=== PATIENT | male | born 1950 | race Two or more races ===

== ENCOUNTER 2018-11-02 11:05 | Emergency (ER) | payer OTHER ==
[~2018-11-02] VITALS: Ht 177.8 cm; Wt 83.9 kg
[~2018-11-02 11:05] MED LIST: INTESTINEX1 CAP PO; ZANTAC150 MG PO
[2018-11-02] MEDS ORDERED: MATULANE50 MG (11:37)
[2018-11-02] MEDS ORDERED: AVALIDE 300-121 EACH (11:37)
[2018-11-02] MEDS ORDERED: CRESTOR10 MG (11:38)
[2018-11-02] MEDS ORDERED: ZETIA10 MG (11:38)
[2018-11-02] MEDS ORDERED: ASPIR 8181 MG (11:38)
== END 2018-11-02 14:31 | disposition home or self-care (01) ==
LOC: ER 11:05
DX: L03.115 Cellulitis of right lower limb (principal); S90.31XS Contusion of right foot, sequela; W22.8XXS Striking against or struck by other objects, sequela

== ENCOUNTER 2019-02-26 16:16 | Outpatient (CLI) | payer OTHER ==
[~2019-02-26 16:16] MED LIST changes: +ASPIR 8181 MG; +AVALIDE 300-121 EACH; +CRESTOR10 MG; +MATULANE50 MG; +ZETIA10 MG
== END 2019-02-27 12:39 | disposition home or self-care (01) ==
LOC: RAD 16:16
DX: J18.8 Other pneumonia, unspecified organism (principal)

== ENCOUNTER 2019-04-14 10:15 | Outpatient (CLI) | payer OTHER | END 2019-04-14 11:00 | disposition home or self-care (01) | LOC: RAD 10:15 | DX: R05 Cough (principal) ==

== ENCOUNTER 2019-04-16 14:41 | Emergency (ER) | payer OTHER ==
[~2019-04-16] VITALS: Ht 177.8 cm; Wt 83.9 kg
== END 2019-04-16 20:51 | disposition home or self-care (01) ==
LOC: ER 14:41
DX: J06.9 Acute upper respiratory infection, unspecified (principal)

== ENCOUNTER 2020-11-18 08:00 | Outpatient (CLI) | payer OTHER | END 2020-11-18 08:15 | disposition home or self-care (01) | LOC: PPH VACUNA 08:00 | PROVIDERS: ATTEND Emergency Medicine Pediatric Emergency Medicine | DX: Z23 Encounter for immunization (principal) ==

== ENCOUNTER → 2020-11-18 | Outpatient (CLI) | payer OTHER | END | disposition home or self-care (01) | LOC: RAD 16:07 | PROVIDERS: ATTEND Internal Medicine Cardiovascular Disease | DX: I11.9 Hypertensive heart disease without heart failure (principal); R07.89 Other chest pain ==

== ENCOUNTER 2021-01-24 15:39 | Outpatient (CLI) | payer OTHER | END 2021-01-24 15:50 | disposition home or self-care (01) | LOC: RAD 15:39 | PROVIDERS: ATTEND Internal Medicine Cardiovascular Disease | DX: M79.641 Pain in right hand (principal); M79.642 Pain in left hand ==

== ENCOUNTER 2021-05-30 15:15 | Outpatient (CLI) | payer OTHER | END 2021-05-30 15:30 | disposition home or self-care (01) | LOC: PPH VACUNA 15:15 | PROVIDERS: ATTEND Emergency Medicine Pediatric Emergency Medicine | DX: Z23 Encounter for immunization (principal) ==

== ENCOUNTER 2021-06-15 11:02 | Outpatient (CLI) | payer OTHER | END 2021-06-15 12:02 | disposition home or self-care (01) | LOC: RAD 11:02 | DX: M16.12 Unilateral primary osteoarthritis, left hip (principal) ==

== ENCOUNTER 2021-10-02 14:55 | Outpatient (CLI) | payer OTHER | END 2021-10-02 15:50 | disposition home or self-care (01) | LOC: PPH VACUNA 14:55 → ASH CLINIC 14:55 → PPH VACUNA 15:50 | PROVIDERS: ATTEND General Practice | DX: U07.1 COVID-19 (principal) ==

== ENCOUNTER 2022-08-02 06:36 | Outpatient (CLI) | payer OTHER | END 2022-08-02 07:10 | disposition home or self-care (01) | LOC: SONOGRAMA 06:36 | PROVIDERS: ATTEND Urology | DX: R31.0 Gross hematuria (principal); N40.0 Benign prostatic hyperplasia without lower urinary tract symptoms ==

== ENCOUNTER 2022-11-08 06:24 | Outpatient (CLI) | payer OTHER | END 2022-11-08 10:39 | disposition home or self-care (01) | LOC: TOM 06:24 | PROVIDERS: ATTEND Internal Medicine Gastroenterology | DX: R10.11 Right upper quadrant pain (principal); R10.12 Left upper quadrant pain; R10.13 Epigastric pain | CPT/HCPCS: 74178; Q9965 ==

== ENCOUNTER 2023-05-07 08:25 | Outpatient (CLI) | payer OTHER | END 2023-05-07 08:40 | disposition home or self-care (01) | LOC: RAD 08:25 | PROVIDERS: ATTEND Specialist | DX: I10 Essential (primary) hypertension (principal); Z95.0 Presence of cardiac pacemaker ==

== ENCOUNTER 2023-09-19 09:39 | Outpatient (CLI) | payer OTHER | END 2023-09-19 14:35 | disposition home or self-care (01) | LOC: RAD 09:39 | PROVIDERS: ATTEND Physical Medicine & Rehabilitation | DX: M54.51 Vertebrogenic low back pain (principal); M51.36 Other intervertebral disc degeneration, lumbar region ==

== ENCOUNTER 2023-09-28 08:10 | Emergency (ER) | payer OTHER ==
[~2023-09-28] VITALS: Ht 177.8 cm; Wt 80.3 kg
[2023-09-28] MEDS ORDERED: LEXAPRO5 MG (08:15)
[2023-09-28 09:43] LABS: HEMATOCRIT 39.2 % (39.0-48.0); HEMOGLOBIN 13.6 g/dL (13-16.00); MEAN CELL VOLUME 89.8 fL (80.0-100.00); MEAN CORPUSCULAR HGB CONC 34.6 g/dl (32.0-36.0); PLATELET COUNT 224 K/uL (150-450); RED BLOOD COUNT 4.37 M/uL (4.00-6.00); RED CELL DISTRIBUTION WIDTH 13.8 % (11.5-14.5)
[2023-09-28] MEDS ORDERED: MAPAP500 MG PO (11:29)
[2023-09-28] MEDS ORDERED: VITAMIN C500 MG PO (11:29)
== END 2023-09-28 11:44 | disposition home or self-care (01) ==
LOC: ER 08:12
DX: B34.9 Viral infection, unspecified (principal); Z20.822 Contact with and (suspected) exposure to COVID-19

== ENCOUNTER 2023-11-14 06:45 | Outpatient (CLI) | payer OTHER ==
[~2023-11-14 06:45] MED LIST changes: +LEXAPRO5 MG; +MAPAP500 MG PO; +VITAMIN C500 MG PO
== END 2023-11-14 10:02 | disposition home or self-care (01) ==
LOC: RAD 06:45
PROVIDERS: ATTEND Pulmonary Function Technologist
DX: J45.901 Unspecified asthma with (acute) exacerbation (principal); J45.909 Unspecified asthma, uncomplicated; M19.90 Unspecified osteoarthritis, unspecified site; I10 Essential (primary) hypertension; Z95.0 Presence of cardiac pacemaker; G43.909 Migraine, unspecified, not intractable, without status migrainosus

== ENCOUNTER 2025-01-12 09:46 | Outpatient (CLI) | payer OTHER | END 2025-01-12 10:00 | disposition home or self-care (01) | LOC: TOM 09:46 | DX: M54.50 Low back pain, unspecified (principal); M54.32 Sciatica, left side ==